=== PATIENT | female | born 1955 | race Caucasian/White ===

== ENCOUNTER → 2024-06-23 07:11 | Outpatient (CLI) | payer MEDICARE, BC, SELFPAY ==
--- NOTE | 2024-06-23 07:37 | DI.MRI.S_ITS ---
PROCEDURE: MR KNEE LT WO CON INDICATIONS: INTERNAL DERANGEMENT OF LEFT KNEE TECHNIQUE: Noncontrast sagittal PD fast spin echo and T2 fast spin echo with fat saturation, sagittal 3-D FLASH with fat saturation; coronal T1 spin echo and PD fast spin echo with fat saturation, and axial PD fast spin echo with fat saturation through the knee. COMPARISON: None. FINDINGS: Image quality: Excellent. Menisci: In the medial meniscus, there is a mildly complex tear of the posterior horn, with a horizontal component extending to the femoral articular surface, and a vertical component of the inner margin. mild extrusion of the medial meniscus body. The lateral meniscus is unremarkable. Cruciate ligaments: The anterior and posterior cruciate ligaments appear intact. Medial structures: Grade 1 sprain of the MCL. Lateral structures: The lateral collateral ligament, long and short heads of the biceps femoris tendon appear intact. The popliteus tendon appears normal; the popliteofibular ligament appears intact. The posterosuperior and anteroinferior popliteomeniscal fascicles appear intact. The arcuate and fabellofibular ligaments appear intact, on either side of the lateral inferior geniculate artery. Iliotibial band appears normal. Anterior structures: The quadriceps tendon is unremarkable. Mild tendinosis of the proximal and distal patellar tendon. Mild infrapatellar subcutaneous edema. No Hoffa's fat pad edema. Alignment of the patellofemoral compartment is anatomic. Patellofemoral ligaments are intact. Bones and cartilage: Multifocal mild chondral irregularity and thinning of the patella. Small area of high-grade chondral loss in the medial trochlea, with mild subchondral marrow edema. Mild chondral thinning of the central trochlea. Cartilage of the lateral trochlea is well maintained. In the medial compartment, there is mild chondral irregularity in the weight-bearing portion of the medial femoral condyle. Cartilage of the lateral compartment is well maintained. Mild subchondral cystic changes and marrow edema at the anterior tibial eminence, reactive. 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 Large popliteal cyst. Popliteal vasculature is unremarkable. No intra-articular body. IMPRESSION: 1. Mildly complex tear of the medial meniscus. 2. Grade 1 sprain of the MCL. 3. Mild chondrosis of the patellofemoral and the medial compartment. 4. 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 5. Moderate knee effusion. Large popliteal cyst. Dictated by: Lu Maldonado M.D. on 06/24/2024 at 10:28 Approved by: Lu Maldonado M.D. on 06/24/2024 at 10:40
[2024-06-23 08:33] LABS: Alanine Aminotransferase 29 IU/L (<35); Albumin 4.3 g/dL (3.5-5.0); Albumin Globulin Ratio 1.7 (1.0-2.8); Alkaline Phosphatase 65 U/L (38-126); Aspartate Aminotransferase 28 IU/L (14-36); BUN Creatinine Ratio 35.1 (6-22); Bilirubin Total 0.7 mg/dL (0.2-1.3); Blood Urea Nitrogen 26 mg/dL (7-17); Calcium 9.7 mg/dL (8.4-10.2); Carbon Dioxide 28 mmol/L (22-32); Chloride 103 mmol/L (98-107); Cholesterol 177 mg/dL (140-199); Estimated Glomerular Filt Rate > 60 mL/min (>60); Globulin 2.5 g/dL (1.7-4.1); Glucose 97 mg/dL (80-110); HDL Cholesterol 52 mg/dL (40-60); HEMOLYSIS < 15 (0-50); LDL Cholesterol Calculated 100 mg/dL (<100); Potassium 4.9 mmol/L (3.4-5.1); Sodium 139 mmol/L (137-145); Total Protein 6.8 g/dL (6.3-8.2); Triglycerides 123 mg/dL (35-150)
== END ==
PROVIDERS: PCP Family Medicine; Referring Provider Orthopaedic Surgery Foot and Ankle Surgery; Visit Provider Orthopaedic Surgery Foot and Ankle Surgery
DX: S83.412A Sprain of medial collateral ligament of left knee, initial encounter (principal); S83.232A Complex tear of medial meniscus, current injury, left knee, initial encounter; M71.22 Synovial cyst of popliteal space [Baker], left knee; M25.462 Effusion, left knee; M23.92 Unspecified internal derangement of left knee; E78.5 Hyperlipidemia, unspecified; M22.42 Chondromalacia patellae, left knee
CPT/HCPCS: 36415; 73721; 80053; 80061

== ENCOUNTER → 2024-09-09 09:15 | Outpatient (CLI) | payer MEDICARE, OTHER, SELFPAY ==
--- NOTE | 2024-09-09 09:16 | DI.ECHO.S_ITS ---
[facility]+ [facility] : : [address] : : [place] : : [id number] : : Phone: [phone] Echocardiogram Report + + :Name: MELISSA JORDAN Study Date: 09/09/2024 Height: 70 in : :Hospital ReadingLocation: Weight: 190 lb : : Gender: Female BSA: 2.0 m2 : :: 1955 Age: 69 yrs BP: 139/84 mmHg: :Reason For Study: CHEST PAIN : :Ordering Physician: DILLON, : :DANNY Cornejo Performed By: Nicole Cuellar : :Referring: DANNY CARRANZA : + + Interpretation Summary Normal sinus rhythm. Normal LV size, wall thickness, wall motion and LV systolic function. EF is 60-65%. Normal chamber sizes. No valve abnormalities. No prior study available for comparison. Procedure: A two-dimensional transthoracic echocardiogram with color flow and Doppler was performed. The study quality was technically adequate. There is no prior echocardiogram noted for this patient. The patient was in sinus rhythm with heart rates between 65-75 bpm during the exam. Left Ventricle: The left ventricle is normal in size and wall thickness. The ejection fraction is estimated to be 60-65%. Diastolic function could not be accurately assessed due to contradictory data. Right Ventricle: The right ventricle is normal in size and function. Atria: The left atrial size is normal. Right atrial size is normal. There is no Doppler evidence for an interatrial shunt. Mitral Valve: The mitral valve leaflets appear to open well. There is no mitral annular calcification. There is trace mitral regurgitation. Aortic Valve: The aortic valve is trileaflet. The aortic valve opens well. There is no aortic valve stenosis. No aortic regurgitation is present. Tricuspid Valve: The tricuspid valve leaflets are thin and pliable. There is mild tricuspid regurgitation. The right ventricular systolic pressure is estimated to be at least 25 mmHg based on an estimated right atrial pressure of 3 mm Hg. Pulmonic Valve: The pulmonic valve leaflets are thin and pliable; valve motion is normal. There is no pulmonic valvular regurgitation. Great Vessels: The aortic root is normal size. The dimensions of the ascending aorta are normal. The IVC is of normal diameter and collapses greater than 50% with a sniff. This suggests a low right atrial pressure of 3 mm Hg. Pericardium/ Pleura There is no pericardial effusion. There is no pleural effusion. MMode/2D Measurements & Calculations LVIDd: 4.7 cm LVOT diam: 2.1 cm LVIDs: 2.9 cm Ao root diam: 2.9 cm FS: 39.6 % asc Aorta Diam: 3.0 cm IVSd: 0.91 cm Ao Arch Diam (Prox Trans): 2.8 cm LVPWd: 0.74 cm LV cline. diameter/BSA (cm/m^2): 2.3 LV sys. diameter/BSA (cm/m^2): 1.4 LA A2 area: 14.5 cm2 RA long axis: 4.1 cm LA A4 area: 14.2 cm2 RA area: 10.6 cm2 LA length (vol): 4.7 cm RA vol: 23.1 ml LA vol: 36.8 ml RA : 11.3 ml/m2 LA vol index: 18.0 ml/m2 IVC diam: 1.3 cm RVD1 (basal): 3.4 cm RVD2 (mid): 2.8 cm TAPSE: 1.8 cm Doppler Measurements & Calculations Ao V2 max: 125.3 cm/sec LVOT Max Cullen: 116.3 cm/sec Ao V2 mean: 92.8 cm/sec LV V1 max P.4 mmHg Ao max P.3 mmHg LV V1 VTI: 25.7 cm Ao mean P.7 mmHg MARK(I,D): 3.0 cm2 Ao V2 VTI: 29.0 cm MARK(V,D): 3.1 cm2 sev ratio: 0.89 MARK indexed to BSA (cm^2/m^2): 1.5 MV E max cullen: 108.2 cm/sec TR max cullen: 235.2 cm/sec MV A max cullen: 88.5 cm/sec TR max P.1 mmHg MV E/A: 1.2 PA V2 max: 88.1 cm/sec Med Peak E' Cullen: 12.2 cm/sec PA V2 mean: 64.3 cm/sec E/E' med: 8.9 PA mean P.8 mmHg Lat Peak E' Cullen: 11.8 cm/sec PA pr(Accel): 29.3 mmHg E/E' lat: 9.2 E/e' average: 9.0 MV dec time: 0.22 sec SV(LVOT): 86.5 ml Electronically signed by: Marina Brown M.D. on Reading Physician:09/10/2024 03:03 AM
== END ==
PROVIDERS: PCP Family Medicine; Referring Provider Family Medicine; Visit Provider Family Medicine
DX: I07.1 Rheumatic tricuspid insufficiency (principal); R07.9 Chest pain, unspecified; R42 Dizziness and giddiness
CPT/HCPCS: 93306

== ENCOUNTER → 2024-11-07 09:31 | Outpatient (CLI) | payer MEDICARE, OTHER, SELFPAY ==
--- NOTE | 2024-11-07 09:32 | DI.RAD.S_ITS ---
PROCEDURE: XR DEXA AXIAL SKELETON INDICATIONS: Post menopause COMPARISON: None. FINDINGS: Lumbar Spine: Bone mineral density 0.902 g/cm2, T score -1.3. Left Femoral Neck: Bone mineral density 0.754 g/cm2, T score -0.9. Left Hip: Bone mineral density 0.794 g/cm2, T score -1.2. Fracture Risk Calculation (when applicable): 10-year fracture risk of a major osteoporotic fracture 8.2 percent and of a hip fracture 0.6 percent. (T score greater or equal to -1.0 to: NORMAL) (T score from -1.1 to -2.4: OSTEOPENIA) (T score less than or equal to -2.5: OSTEOPOROSIS) IMPRESSION: 1. Osteopenia of the lumbar spine. 2. Normal bone density of the left femur. 3. Osteopenia of the left hip. Follow-up guidelines as follows: Osteoporosis: Consider a repeat DEXA and Vertebral Fracture Assessment (VFA) exam in 2 years or sooner if medically necessary, to reassess this patient's status. Osteopenia: Consider a repeat DEXA in 2-3 years to reassess this patient's status, or if there is a new clinical indication. Normal: Consider a repeat DEXA in 5 years or sooner, or if there is a new clinical indication. All treatment decisions require clinical judgment and consideration of individual patient factors, including patient preferences, comorbidities, previous drug use, risk factors not captured in the FRAX model (e.g., frailty, falls, vitamin D deficiency, increased bone turnover, interval significant decline in bone density ) and possible under- or over-estimation of fracture risk by FRAX. In addition, the NOF Guide recommends that FDA-approved medical therapies be considered in postmenopausal women and men age >= 50 years with a: * Hip or vertebral (clinical or morphometric) fracture * T-score of <=-2.5 at the spine or hip * Ten-year fracture probability by FRAX of >= 3% for hip fracture or >=20% for major osteoporotic fracture. Dictated by: Royal Calabrese M.D. on 11/07/2024 at 14:17 Approved by: Royal Calabrese M.D. on 11/07/2024 at 14:18
--- NOTE | 2024-11-07 09:32 | DI.MG.S_ITS ---
MM screening mammo BI: 11/07/2024. BI-RADS: 2 CLINICAL: 69-year old female for bilateral screening mammogram. No Tyrer-Cuzick risk score calculation due to the patient's personal history of breast cancer. Patient reports a history of right breast carcinoma diagnosed at age 50. Status-post right lumpectomy. PRIOR EXAMS 08/30/2022, 04/14/2020, 11/06/2017. MAMMOGRAPHY TECHNIQUE: 2D and 3D (tomosynthesis) digital mammographic views obtained, with additional images as needed for full coverage. Current study was also evaluated with a Computer Aided Detection (CAD) system. DENSITY C. The breasts are heterogeneously dense, which may obscure small masses. MAMMOGRAPHY FINDINGS Right: Benign-appearing calcification and post-surgical changes noted on the right. There are no suspicious masses, calcifications, or other findings in the breast. No significant change from comparison. Left: There are no suspicious masses, calcifications, or other findings in the breast. No significant change from comparison. IMPRESSION: * No evidence of malignancy with benign findings. RECOMMENDATIONS Bilateral * Annual screening mammography. OVERALL ASSESSMENT CATEGORY BI-RADS-2: Benign. The [employer] recommends annual screening mammography beginning at age 40 for women with average risk of breast cancer. ELECTRONICALLY SIGNED: Janeth Edmondson M.D. on 11/07/2024 at 10:39:17 AM PT Interpreting Station ID: [id number]
== END ==
PROVIDERS: PCP Family Medicine; Referring Provider Family Medicine; Visit Provider Family Medicine
DX: Z12.31 Encounter for screening mammogram for malignant neoplasm of breast (principal); Z85.3 Personal history of malignant neoplasm of breast; R92.333 Mammographic heterogeneous density, bilateral breasts; M85.89 Other specified disorders of bone density and structure, multiple sites; Z78.0 Asymptomatic menopausal state
CPT/HCPCS: 77063; 77067; 77080

== ENCOUNTER → 2025-06-30 07:32 | Outpatient (CLI) | payer MEDICARE, OTHER, SELFPAY ==
[2025-06-30 08:41] LABS: HEMOLYSIS < 15 (0-50)
[2025-06-30 08:55] LABS: Alanine Aminotransferase 37 IU/L (<35); Albumin 4.2 g/dL (3.5-5.0); Albumin Globulin Ratio 1.7 (1.0-2.8); Alkaline Phosphatase 67 U/L (38-126); Globulin 2.5 g/dL (1.7-4.1); Total Protein 6.7 g/dL (6.3-8.2)
== END ==
PROVIDERS: PCP Student in an Organized Health Care Education/Training Program; Referring Provider Student in an Organized Health Care Education/Training Program; Visit Provider Student in an Organized Health Care Education/Training Program
DX: R74.8 Abnormal levels of other serum enzymes (principal)
CPT/HCPCS: 36415; 80076